=== PATIENT | female | born 1945 | race Caucasian/White ===

== ENCOUNTER → 2016-09-11 | Outpatient (CLI) | payer OTHER, MEDICARE ==
[~2016-09-11] MED LIST: GADOBUTROL 10 ML VIAL IVP ONE
[2016-09-11 12:02] LABS: CREATININE 0.7 mg/dL (0.6-1.0); GLOMERULAR FILTRATION RATE > 60
== END ==
LOC: FIMAGING 11:06
PROVIDERS: ATTEND Orthopaedic Surgery
DX: M85.48 Solitary bone cyst, other site (principal); M76.01 Gluteal tendinitis, right hip; S73.191A Other sprain of right hip, initial encounter
CPT/HCPCS: 73722; A9585

== ENCOUNTER → 2016-09-18 | Outpatient (CLI) | payer OTHER, MEDICARE ==
[~2016-09-18] MED LIST changes: +BUPIVACAINE 0.25% 30 ML SDV ONE; +DEPO METHYLPREDNISOLONE 40 MG/ML SDV ONE; -GADOBUTROL 10 ML VIAL IVP ONE; +LIDOCAINE 1% 30 ML SDV ONE; +NA BICARBONATE 50 MEQ/50 ML VIAL ONE
== END ==
LOC: FIMAGING 08:06
PROVIDERS: ATTEND Orthopaedic Surgery
PROC: 3E0U33Z Introduction of Anti-inflammatory into Joints, Percutaneous Approach (ICD-10-PCS; principal; 2016-09-18)
PROC: 0S993ZZ Drainage of Right Hip Joint, Percutaneous Approach (ICD-10-PCS; principal; 2016-09-18)
DX: M71.351 Other bursal cyst, right hip (principal)
CPT/HCPCS: 20611; 76942; J1020

== ENCOUNTER 2016-12-02 17:22 | Emergency (ER) | payer OTHER, MEDICARE ==
[2016-12-02 17:27] VITALS: RESP 16
--- NOTE | 2016-12-02 17:54 | EDPHY ---
H & P Time Seen by Provider: 12/02/16 17:37 HPI/ROS: CHIEF COMPLAINT: Mechanical fall, lip laceration HISTORY OF PRESENT ILLNESS: 71-year-old female presents to the emergency department with laceration to her lower lip. The patient was hiking this morning around 10:45 a.m. and tripped and fell forward. She did not lose consciousness. She denies a headache. She chipped her front teeth and her lower teeth as well. She denies any pain in her mandible. Denies neck or back pain. Denies chest pain or difficulty breathing. Denies abdominal pain. She injured her left wrist and was seen at urgent care earlier today and had negative x-rays. She was placed in a splint. Denies injury to lower extremities. Last tetanus shot was in 2009. REVIEW OF SYSTEMS: Constitutional: No fever, no chills. Eyes: No double or blurry vision. ENT: Lip laceration. No sore throat. Respiratory: No cough, no shortness of breath. Cardiac: No chest pain. Gastrointestinal: No abdominal pain, vomiting or diarrhea. Genitourinary: No dysuria. Musculoskeletal: No neck or back pain. Skin: No rashes. Neurological: No headache. Past Medical/Surgical History: Hypothyroidism, cholecystectomy, orthopedic surgery Social History: Smoking Status: Never smoked Physical Exam: General Appearance: Alert, no distress. Afebrile Eyes: Pupils equal and round. Extraocular motions are all intact. ENT: Mouth: Mucous membranes moist. No malocclusion. She chipped her left upper tooth. Sent lower front tooth as well. No dentin exposure. No bleeding. No ecchymosis around the tooth. Respiratory: No wheezing, rhonchi, or rales, lungs are clear to auscultation. Cardiovascular: Regular rate and rhythm. Gastrointestinal: Abdomen is soft and nontender, no masses, no rebound or guarding, bowel sounds normal. Neurological: Alert and oriented x 3, cranial nerves II through XII grossly intact Skin: 1.5 cm flap laceration to the anterior old lower lip. Just barely crosses the vermilion border. There is also a 1.5 cm laceration inside the lower lip to the buccal mucosa. Warm and dry, no rashes. Musculoskeletal: Nontender to palpate along the cervical, thoracic or lumbar spine. Neck is supple. Extremities: Full range of motion of the left upper extremity. She has pain with palpation in the anatomic snuffbox. No palpable bony deformity. No ecchymosis. No abrasions. Full range of motion of the right upper extremity in her lower extremities bilaterally. Psychiatric: Patient is oriented X 3, there is no agitation. Constitutional: Initial Vital Signs Temperature (C) 36.5 C 12/02/16 17:25 Heart Rate 63 12/02/16 17:25 Respiratory Rate 16 12/02/16 17:25 O2 Sat (%) 98 12/02/16 17:25 O2 Delivery Mode Room Air Allergies/Adverse Reactions: No Known Allergies Allergy (Unverified 01/18/15 15:24) Home Medications: Medication Instructions Recorded ASPIRIN 01/18/15 Levothyroxine 01/18/15 Lisinopril 01/18/15 Medical Decision Making Procedures: Laceration repair #1. Verbal consent was obtained from the patient. The 1.5 cm laceration on the anterior lower lip was anesthetized using 1% lidocaine with epinephrine. The wound was irrigated with saline, draped and explored to its base with a gloved finger. Through and through lip laceration. Crosses the vermilion border. The wound was repaired with 6 0 Prolene, 7 sutures. The wound repair was simple. The procedure was performed by myself. Laceration repair #2. Verbal consent was obtained from the patient. The 1.5 cm laceration on the buccal mucosa inside lower lip was anesthetized using 1% lidocaine with epinephrine. The wound was irrigated with saline, draped and explored to its base with a gloved finger. There were no deep structures involved. The wound was repaired with 6 0 Vicryl, 5 sutures. The wound repair was simple. The procedure was performed by myself. ED Course/Re-evaluation: 71-year-old female presents after mechanical fall with lip laceration. Patient initially requested plastic surgeon. I did explain that we did have a plastic surgeon on-call, however I explained that I felt very comfortable repairing the laceration in the emergency department. The patient verbalized understanding and agreed. The wound was repaired, see procedure note. The patient also injured her left wrist which was imaged at urgent care. She was told that there were no fractures. The Velcro thumb spica splint that was applied at urgent care was very uncomfortable for her. She was placed in a new Velcro thumb spica splint in the emergency department and felt that this was more comfortable. The patient requested referral to oral surgeon as well as orthopedic surgeon. Patient was given wound care precautions. She understands to follow up with a dentist as soon as possible. I do not think imaging studies are indicated. She has no palpable bony tenderness. She has no malocclusion. She does however have chipped front upper and lower teeth that I recommended follow-up with a dentist as soon as possible. Differential Diagnosis: Head injury including but not limited to concussion, skull fracture, intraparenchymal contusion, subarachnoid, subdural and epidural hematoma. Left wrist injury including but not limited to fracture, dislocation, contusion , sprain Departure - Departure Disposition: Home, Routine, Self-Care Clinical Impression: Laceration of lip Qualifiers: Encounter type: initial encounter Qualified Code(s): S01.511A - Laceration without foreign body of lip, initial encounter Condition: Good Instructions: Care For Your Stitches (ED), Laceration (ED), Acute Dental Trauma (ED), Acute Wounds (ED) Additional Instructions: Wound Care Follow-Up: Removal of sutures in 5 days. Suture removal is complimentary in uncomplicated cases. Infection or abnormal findings would require reevaluation by the MD. In that case, you may be billed. Return if you notice any signs or symptoms of infection such as redness, swelling, increased pain, fever, purulent drainage. Keep the splint on until follow-up with orthopedic surgeon. Follow up with your dentist/oral surgeon as soon as possible. Soft foods as discussed. Dentist in [place]: Dr. Marco Antonio Rodríguez Dentist in [place]: Dr. Luis Carlos Marlow Referrals: Nicholas Poole DDS [Doctor of Dental Surgery] - As per Instructions Angel Gamino DDS [Doctor of Dental Surgery] - As per Instructions Charbel Young MD [Medical Doctor] - 5-7 days, call for appt. (Orthopedic hand surgeon on-call)
[2016-12-02 19:35] VITALS: BP 140/82; PULSE 75; TEMP 98.6; O2SAT 96
== END 2016-12-02 19:35 | disposition home or self-care (01) ==
PROC: 0CQ1XZZ Repair Lower Lip, External Approach (ICD-10-PCS; principal; 2016-12-02)
DX: S01.511A Laceration without foreign body of lip, initial encounter (principal); Z79.82 Long term (current) use of aspirin; W01.0XXA Fall on same level from slipping, tripping and stumbling without subsequent striking against object, initial encounter; Y99.8 Other external cause status; Y93.01 Activity, walking, marching and hiking
CPT/HCPCS: 12011; 99282; L3807

== ENCOUNTER → 2016-12-02 | Outpatient (CLI) | payer OTHER, MEDICARE | LOC: GIMAGING 15:57 | PROVIDERS: ATTEND Nurse Practitioner | DX: S69.92XA Unspecified injury of left wrist, hand and finger(s), initial encounter (principal); X58.XXXA Exposure to other specified factors, initial encounter | CPT/HCPCS: 73110-PO ==

== ENCOUNTER → 2018-05-13 | Outpatient (CLI) | payer OTHER, MEDICARE | LOC: FIMAGING 10:50 | PROVIDERS: ATTEND Internal Medicine | DX: Z12.31 Encounter for screening mammogram for malignant neoplasm of breast (principal) ==